=== PATIENT | male | born 1995 | race Hispanic/Latino ===

== ENCOUNTER → 2023-10-05 | Outpatient (CLI) | payer OTHER | END | disposition home or self-care (01) | LOC: RAH 12:41 → EEVIPCON 12:41 | PROVIDERS: ATTEND Family Medicine | DX: Z11.1 Encounter for screening for respiratory tuberculosis (principal); J44.9 Chronic obstructive pulmonary disease, unspecified; J94.8 Other specified pleural conditions; M47.815 Spondylosis without myelopathy or radiculopathy, thoracolumbar region | CPT/HCPCS: 71250 ==